=== PATIENT | female | born 1945 | race Hispanic/Latino ===

== ENCOUNTER → 2017-11-16 | Outpatient (CLI) | payer MEDICARE, OTHER ==
[~2017-11-16] MED LIST: ATENOLOL100 MG PO; BUPROPION HCL150 M2 PO; CEPHALEXIN500 MG PO; HYDROCHLOROTHIA25 MG PO; OXYCONTIN10 MG PO; Valsartan PO; Z SULAR PO; Z.0.LISINOPRIL5 MG PO; Z.0.NORCO 5-325 TA1 PO; Z.0.NORVASC10 MG PO; Z.0.TRIAMTERENE-HC1 PO; Z.0.XANAX1 MG PO
--- NOTE | 2017-11-16 09:50 | Diagnostic Imaging Report ---
PROCEDURE: Frontal and lateral views of the chest. COMPARISON: None. INDICATIONS: CONGESTION AND COUGH FINDINGS: Lines/tubes: None. Lungs: The lungs are well inflated and clear. There is no evidence of pneumonia or pulmonary edema. Bibasilar atelectasis. Pleura: There is no pleural effusion or pneumothorax. Heart and mediastinum: The heart and the mediastinum are normal. Bones: No acute bony abnormality. Degenerative changes of the thoracic spine. Postoperative changes of the right shoulder. IMPRESSION: No acute radiographic abnormality. Dictated by: Guero Nava M.D. on 11/16/2017 at 9:49 Electronically approved by: Guero Nava M.D. on 11/16/2017 at 9:49
== END ==
LOC: RAD 09:06
PROVIDERS: ATTEND Internal Medicine
DX: J20.9 Acute bronchitis, unspecified (principal)
CPT/HCPCS: 71046

== ENCOUNTER → 2017-12-31 | Outpatient (CLI) | payer MEDICARE, OTHER ==
--- NOTE | 2017-12-31 14:20 | Diagnostic Imaging Report ---
PROCEDURE:X-RAY RIGHT HUMERUS, TWO OR MORE VIEWS COMPARISON:Chest portable 11/16/2017. INDICATIONS:RIGHT HUMERUS/SHOULDER PAIN FINDINGS: Separation is present between the acromium and the distal head of the clavicle, measuring 2.0 cm. There are no fractures, dislocations, lytic or blastic lesions. The bones are well-mineralized. The soft-tissues are unremarkable. Postoperative changes of the right shoulder. CONCLUSION: Right acromioclavicular joint separation. No acute displaced fracture. Dictated by: Guero Nava M.D. on 12/31/2017 at 14:21 Electronically approved by: Guero Nava M.D. on 12/31/2017 at 14:21
--- NOTE | 2017-12-31 14:21 | Diagnostic Imaging Report ---
PROCEDURE:X-RAY RIGHT SHOULDER, COMPLETE COMPARISON:None. INDICATIONS:RIGHT SHOULDER PAIN FINDINGS: Right acromioclavicular joint separation, measuring 2.0 cm. No displaced fracture. Postoperative changes of the right shoulder. There are no fractures, dislocations, lytic or blastic lesions. The bones are well-mineralized. The soft-tissues are unremarkable. CONCLUSION: Right acromioclavicular joint separation. Dictated by: Guero Nava M.D. on 12/31/2017 at 14:22 Electronically approved by: Guero Nava M.D. on 12/31/2017 at 14:22
== END ==
LOC: RAD 13:00
PROVIDERS: ATTEND Internal Medicine
DX: M25.511 Pain in right shoulder (principal); M79.601 Pain in right arm; S43.101A Unspecified dislocation of right acromioclavicular joint, initial encounter

== ENCOUNTER 2018-04-13 14:14 | Emergency (ER) | payer OTHER ==
[~2018-04-13] VITALS: Ht 162.6 cm; Wt 130.2 kg
== END 2018-04-13 16:35 | disposition left against medical advice (07) ==
LOC: ER 14:14
DX: R52 Pain, unspecified (principal)
CPT/HCPCS: 99282

== ENCOUNTER → 2021-12-20 | Outpatient (CLI) | payer MEDICARE, OTHER | LOC: DX 09:07 | PROVIDERS: ATTEND Family Medicine | DX: Z12.31 Encounter for screening mammogram for malignant neoplasm of breast (principal); Z13.820 Encounter for screening for osteoporosis | CPT/HCPCS: 77067; 77080 ==

== ENCOUNTER 2022-05-05 17:53 | Emergency (ER) | payer MEDICARE, OTHER ==
[~2022-05-05] VITALS: Ht 162.6 cm; Wt 130.2 kg
[2022-05-05] MEDS ORDERED: MEDROL4 M2 PO (18:57)
[2022-05-05] MEDS ORDERED: ANAPROX DS550 MG PEG (18:57)
[2022-05-05] MEDS ORDERED: GABAPENTIN300 MG PO (18:58)
[2022-05-05] MEDS ORDERED: DEXAMETHASONE SOD PHOS 10 MG/1 ML VIAL IV ONE (19:00)
== END 2022-05-05 19:05 | disposition home or self-care (01) ==
LOC: ER 18:26
DX: M51.16 Intervertebral disc disorders with radiculopathy, lumbar region (principal); I10 Essential (primary) hypertension; Z96.653 Presence of artificial knee joint, bilateral; Z88.8 Allergy status to other drugs, medicaments and biological substances; M51.17 Intervertebral disc disorders with radiculopathy, lumbosacral region
CPT/HCPCS: 99282; J1100